=== PATIENT | male | born 1955 | race Hispanic/Latino ===

== ENCOUNTER 2021-02-28 06:28 | Day surgery (SDC) | payer BC ==
[2021-02-27 11:47] VITALS: BMI 27.4
[2021-02-28] MEDS ORDERED: Famotidine/PF 20 mg/2ml Vial ONE (07:57)
[2021-02-28] MEDS ORDERED: Fentanyl 100 MCG/2 ML VIAL ONE ×3 (07:57→09:28)
[2021-02-28] MEDS ORDERED: Lidocaine 4% Topical Sol 50 ML BOT ONE (07:58)
[2021-02-28] MEDS ORDERED: Midazolam HCl 2 mg/2 ml Vial ONE (08:22)
[2021-02-28] MEDS ORDERED: Ferric Subsulfate (ASTRINGYN) 8 GM VIAL ONE (08:29)
[2021-02-28] MEDS ORDERED: Ondansetron PF 4 MG/2 ML Vial ONE (08:47)
[2021-02-28] MEDS ORDERED: Metoclopramide HCl 10 MG/2 ML VIAL ONE (08:47)
[2021-02-28] MEDS ORDERED: Lidocaine 1% PF 5 ML VIAL ONE (08:47)
[2021-02-28] MEDS ORDERED: Dexamethasone 20 MG/5 ML VIAL ONE (08:47)
[2021-02-28] MEDS ORDERED: PROPOFOL 200 MG/20 ML VIAL ONE (08:47)
[2021-02-28] MEDS ORDERED: Hydrocodone-Acetamin 15 ML UDCUP ONE (11:12)
== END 2021-02-28 11:45 | disposition home or self-care (01) ==
LOC: SDC 06:28
PROVIDERS: ATTEND Otolaryngology Plastic Surgery within the Head & Neck
PROC: 0CTPXZZ Resection of Tonsils, External Approach (ICD-10-PCS; principal; 2021-02-28)
PROC: 0CTQXZZ Resection of Adenoids, External Approach (ICD-10-PCS; principal; 2021-02-28)
DX: J35.03 Chronic tonsillitis and adenoiditis (principal); E78.5 Hyperlipidemia, unspecified; I10 Essential (primary) hypertension; K52.9 Noninfective gastroenteritis and colitis, unspecified; K21.9 Gastro-esophageal reflux disease without esophagitis; M19.90 Unspecified osteoarthritis, unspecified site; Z79.899 Other long term (current) drug therapy; Z87.891 Personal history of nicotine dependence
CPT/HCPCS: 88304; J1100; J2250; J2405; J2704; J2765; J3010; S0028